=== PATIENT | female | born 1945 | race Caucasian/White ===

== ENCOUNTER 2022-06-27 18:26 | Inpatient (IN) | payer MEDICARE, OTHER ==
[~2022-06-27] VITALS: Ht 165.1 cm; Wt 72.1 kg
--- NOTE | 2022-06-27 18:56 | NUR ---
TO ER BED 1. [id number] FROM SNF [facility] THAN USUAL. BASELINE AAOX2. PT AFEBRILE. ATTACHED TO MONITOR. AWAITING MD LOPES.
--- NOTE | 2022-06-27 19:15 | NUR ---
Pt is noted in bed responsive but confused as report is received from the off going nurse that , Pt was brought in from SNF with AMS as baseline used to bed AOX2. Pt care continue as she will received IVF and LAB to do as ordered
[2022-06-27] MEDS ORDERED: IV NS 0.9% 500 ML BAG IV ONE (19:30)
--- NOTE | 2022-06-27 20:22 | NUR ---
COVID SWAB SENT TO LAB
[2022-06-27 20:56] LABS: BASOPHILS % (AUTO) 0.5 % (0.0-2.0); EOSINOPHILS % (AUTO) 4.1 % (0.0-6.0); HEMATOCRIT 40 % (33-45); HEMOGLOBIN 12.7 g/dL (11.5-14.8); LYMPHOCYTES # (AUTO) 1.2 K/uL (0.8-4.8); MEAN CORPUSCULAR HGB CONC 32 g/dl (31.0-36.0); MEAN CORPUSCULAR VOLUME 86 fL (82-100); MONOCYTES # (AUTO) 0.4 K/uL (0.1-1.30); MONOCYTES % (AUTO) 8.6 % (2.0-12.0); NEUTROPHILS # (AUTO) 3.2 K/uL (1.8-8.9); NEUTROPHILS % (AUTO) 63.8 % (43.0-81.0); PLATELET COUNT (AUTO) 152 K/uL (150-450); RED BLOOD CELL COUNT(AUTO) 4.65 MIL/uL (4.0-5.2)
[2022-06-27 21:08] LABS: CALCIUM, SERUM 9.1 mg/dL (8.5-10.1)
[2022-06-27 21:12] LABS: ALBUMIN 3.1 g/dL (3.4-5.0); BILIRUBIN,DIRECT 0.1 mg/dL (0.0-0.2); BILIRUBIN,TOTAL 0.4 mg/dL (0.2-1.0); TOTAL PROTEIN, SERUM 6.8 g/dL (6.4-8.2)
--- NOTE | 2022-06-27 21:16 | NUR ---
URINE COLLECTED AND SENT TO LAB
--- NOTE | 2022-06-27 21:51 | NUR ---
EPIC PANEL PAGED
[2022-06-27 21:59] LABS: BILIRUBIN,URINE NEGATIVE (NEGATIVE); COLOR,URINE YELLOW (YELLOW); LEUKOCYTE ESTERASE ,URINE 1+ (NEGATIVE); NITRITE, URINE POSITIVE (NEGATIVE); PROTEIN,URINE NEGATIVE (NEGATIVE); UGLUCOSE NEGATIVE (NEGATIVE); UROBILINOGEN,URINE 0.2 EU/dL (0.2)
[2022-06-27 22:05] LABS: BACTERIA,URINE 3+ /HPF (None Seen); RBC,URINE 0-2 /HPF (0-2)
--- NOTE | 2022-06-27 22:35 | NUR ---
RT CALLED FOR BREATHING TX
--- NOTE | 2022-06-27 22:36 | NUR ---
Pt care continue as she remain confused . Try giving report to the Floor RN as pt is going to Room 112-1 but RN is busy at this hour.
--- NOTE | 2022-06-27 22:40 | NUR ---
CASINO MANAGER AT PT'S BEDSIDE
[2022-06-27] MEDS ORDERED: CEFTRIAXONE 1GM BAG (ER ONLY) 1 GM/50 ML PIGGYBACK IV ONE (23:00)
[2022-06-27] MEDS ORDERED: LACT10SO3 PO (23:17)
[2022-06-27] MEDS ORDERED: LEVO75TA PO (23:17)
[2022-06-27] MEDS ORDERED: METO-357 PO (23:17)
[2022-06-27] MEDS ORDERED: [UNRECOGNIZED DRUG - CODE] PO (23:17)
[2022-06-27] MEDS ORDERED: FENO160T PO (23:17)
[2022-06-27] MEDS ORDERED: DIVA-78 PO (23:17)
[2022-06-27] MEDS ORDERED: CLON1TAB12 PO (23:17)
[2022-06-27] MEDS ORDERED: AMLO-212 PO (23:17)
[2022-06-27] MEDS ORDERED: ATOR20TA PO (23:17)
[2022-06-27] MEDS ORDERED: CALC1POW43 PO (23:17)
[2022-06-27] MEDS ORDERED: BENZ1TAB7 PO (23:17)
[2022-06-27] MEDS ORDERED: CHOL200013 PO (23:17)
[2022-06-27] MEDS ORDERED: MULT-754 PO (23:17)
--- NOTE | 2022-06-27 23:22 | NUR ---
REPORT GIVEN TO JAYCEE ON FIRST FLOOR
[2022-06-27] MEDS ORDERED: CEFTRIAXONE 1GM BAG (ER ONLY) 50 ML IV ONE (23:40)
--- NOTE | 2022-06-27 23:43 | NUR ---
PT TRANSFERRING TO [facility] VIA ACLS PROTOCOL VSS.
[2022-06-28] VITALS: BP 165/84
--- NOTE | 2022-06-28 | NUR ---
NARROW FABRICS WEAVER NOTE RECEIVED PT FROM ER VIA [facility] WITH THE DX OF AMS AND UTI. PT IS AWAKE BUT CONFUSED. ON NC @ 3LPM, TOLERATING WELL, SATING @ 98%. NO S/SX OF ACUTE RESPI DISTRESS NOTED AT THIS TIME. NO SOB. BREATHING IS EVEN AND UNLABORED. HEALTH INFORMATICS INSTRUCTOR READS SR. IV ACCES NOTED ON LAC, #20g, PATENT, INTACT AND FLUSHES WELL. SKIN IS INTACT UPON ASSESSMENT. ALL SAFETY MEASURES IN PLACE: BED LOCKED IN LOW POSITION. BED ALARM ON. SR UP X 2, CALL LIGHT WITHIN REACH. WILL CONTINUE TO MONITOR PT.
[2022-06-28] MEDS: IV D5W 1,000 ML IV PRN ×2 (00:27→15:02)
[2022-06-28] MEDS ORDERED: MAGNESIUM HYDROXIDE 30 ML UDC PO PRN (00:30)
[2022-06-28] MEDS ORDERED: Z GUARD REMEDY 4 OZ OINT TP PRN (00:30)
[2022-06-28] MEDS ORDERED: ONDANSETRON HCL/PF 4 MG/2 ML VIAL IVP PRN (00:30)
[2022-06-28] MEDS ORDERED: hydrALAZINE HCL IV 20 MG VIAL IV PRN (00:30)
[2022-06-28] MEDS: ENOXAPARIN SODIUM 40 MG/0.4 ML DISP.SYRIN SQ SCH ×2 (00:35→21:44)
[2022-06-28 04:00] VITALS: BP 153/81
[2022-06-28 05:48] LABS: BASOPHILS % (AUTO) 0.5 % (0.0-2.0); EOSINOPHILS % (AUTO) 3.5 % (0.0-6.0); HEMATOCRIT 42 % (33-45); HEMOGLOBIN 13.4 g/dL (11.5-14.8); LYMPHOCYTES # (AUTO) 1.8 K/uL (0.8-4.8); LYMPHOCYTES % (AUTO) 29.6 % (20.0-44.0); MEAN CORPUSCULAR HGB CONC 32 g/dl (31.0-36.0); MEAN CORPUSCULAR VOLUME 85 fL (82-100); MONOCYTES # (AUTO) 0.5 K/uL (0.1-1.30); MONOCYTES % (AUTO) 8.8 % (2.0-12.0); NEUTROPHILS # (AUTO) 3.4 K/uL (1.8-8.9); NEUTROPHILS % (AUTO) 57.6 % (43.0-81.0); PLATELET COUNT (AUTO) 184 K/uL (150-450); RED BLOOD CELL COUNT(AUTO) 4.91 MIL/uL (4.0-5.2)
[2022-06-28 06:03] LABS: CALCIUM, SERUM 8.7 mg/dL (8.5-10.1); CREATININE 0.8 mg/dL (0.6-1.3); MAGNESIUM 1.8 mg/dL (1.8-2.4); POTASSIUM 3.6 mmol/L (3.5-5.1)
--- NOTE | 2022-06-28 06:16 | NUR ---
RN CLOSING NOTE NO SIGNIFICANT CHANGE T/O THE NIGHT. PT REMAINED STABLE WITH NO S/SX OF ACUTE DISTRESS NOTED. DUE MEDS GIVEN. NEEDS MET. WILL ENDORSE TO AM SHIFT NURSE FOR MICHELLE.
[2022-06-28 06:19] LABS: THYROID STIMULATING HORMONE 1.254 uIU/mL (0.358-3.74)
--- NOTE | 2022-06-28 07:10 | NUR ---
ODD JOB LABORER NOTES Received pt asleep in bed. non verbal and unable to follow command. No signs of pain or discomfort at this time. Pt is on 3L NC and tolerating it well. IV access on LAC 20G running IVF D5W @75cc/Hr. HOB elevated to 30-45 degrees. Siderails up at all times x2. Call light within reach. Will continue to monitor.
[2022-06-28] MEDS: PANTOPRAZOLE 40 MG TABLET.DR PO SCH (07:30)
[2022-06-28 08:00] VITALS: BP 149/88
--- NOTE | 2022-06-28 08:30 | NUR ---
RAIL WALKER NOTES Pantoprazole held d/t pt having hx of dysphagia. Pending ST eval.
[2022-06-28 12:00] VITALS: BP 157/98
[2022-06-28] MEDS ORDERED: FLUP5ORA PO (14:34)
[2022-06-28] MEDS ORDERED: MULT-447 PO (14:34)
[2022-06-28] MEDS ORDERED: FLUP25VI4 IM (14:34)
[2022-06-28] MEDS ORDERED: MAGN400O6 PO (14:34)
[2022-06-28] MEDS ORDERED: ACET-868 PO (14:34)
[2022-06-28] MEDS ORDERED: CALC1TAB30 PO (14:34)
[2022-06-28] MEDS ORDERED: BISA10SU11 RC (14:34)
[2022-06-28] MEDS ORDERED: ASCO500T10 PO (14:34)
[2022-06-28] MEDS ORDERED: NA P133E RC (14:34)
[2022-06-28 16:00] VITALS: BP 110/70
--- NOTE | 2022-06-28 18:29 | NUR ---
HEAD INSPECTOR CLOSING NOTES All due meds and tx given as ordered. Pt tolerated everything well. All needs attended to. Pt is still on 3L NC and tolerating it well. IV access on LAC 20G. Call light within reach. Will endorse to oncoming nurse.
--- NOTE | 2022-06-28 19:35 | NUR ---
RN OPENING NOTES RECEIVED PT IN BED, SLEEPING BUT EASILY AROUSABLE. ALERT/ORIENTED X 1 WITH CONFUSION AND RESPONSIVE TO PAIFUL STIMULI. ON O2 AT 3L/MIN VIA N/C AND PT TOLERATED WELL. IV ACCESS ON LAC#20G INTACT AND PATENT. NO S/S OF INFILTRATIONS. RUNNING D5W AT 75CC/HR. NO FACIAL GRIMACING NOTED. NO ACUTE DISTRESS. ALL SAFETY MEASURES IN PLACE. BED IN LOWEST POSITION AND LOCKED. SIDE RAILS UP X3, PLACE CALL LIGHT WITH IN REACH. WILL CONTINUE TO MONITOR
[2022-06-28 20:00] VITALS: BP 103/51
--- NOTE | 2022-06-28 21:29 | NUR ---
NOTED PATIENT WITH HR IN 40S MOSTLY 40S TO MID 40S SUSTAINED, WITH 2 EPISODES DROPPING TO 37-38 NOT SUSTAINED, SEND THE STRIP AND INFORMED DR RACHEL CUSTOMIZER CAFETERIA AIDE, AND PER HIM HE WILL SEE PATIENT IN THE MORNING, ASKED DR RACHEL AGAIN AND THERE'S ANY NEW ORDER TO FOLLOW FOR NOW AND HE SAID NO NEW ORDERS AT THIS TIME, BP AT THIS TIME 133/68, 100%, 18, AFEBRILE, WILL CONTINUE TO MONITOR CLOSELY.
[2022-06-28] MEDS: CEFTRIAXONE 1 G in IV D5W 50 ML IV SCH (21:41)
[2022-06-29] VITALS (7 sets, daily range): BP systolic 113–161; BP diastolic 53–111
[2022-06-29] MEDS: IV D5W 1,000 ML IV PRN ×2 (05:58→19:31)
--- NOTE | 2022-06-29 06:31 | NUR ---
RN CLOSING NOTES PT IN BED, SLEEPING BUT EASILY AROUSABLE. ALERT/ORIENTED X 1 WITH CONFUSION AND RESPONSIVE TO PAINFUL STIMULI. ON O2 AT 3L/MIN VIA N/C AND PT TOLERATED WELL. O2 SAT 100%. IV ACCESS ON LAC#20G AND LT HAND#20G INTACT AND PATENT. NO S/S OF INFILTRATIONS. RUNNING D5W AT 75CC/HR. NO FACIAL GRIMACING NOTED. NO ACUTE DISTRESS.STILL NOTED EPISODES OF SCREAMING AND YELLING. HR SUSTAINING NOW ON 50'S. ALL DUE MEDS GIVEN ORDERED. ALL SAFETY MEASURES IN PLACE. BED IN LOWEST POSITION AND LOCKED. SIDE RAILS UP X3, PLACE CALL LIGHT WITH IN REACH. WILL ENDORSE TO MORNING SHIFT NURSE.
--- NOTE | 2022-06-29 07:47 | NUR ---
RN OPENING NOTES PT IN BED, SLEEPING BUT EASILY AROUSABLE. ALERT/ORIENTED X 1 WITH CONFUSION AND RESPONSIVE TO PAINFUL STIMULI. ON O2 AT 3L/MIN VIA N/C WITH NO SOB OR SIGNS OF RESPIRATORY DISTRESS. IV ACCESS ON LAC#20G AND LT HAND#20G INTACT AND PATENT RUNNING D5W AT 75CC/HR. NO ACUTE DISTRESS. ALL SAFETY MEASURES IN PLACE. BED IN LOWEST POSITION AND LOCKED. SIDE RAILS UP X3, PLACE CALL LIGHT WITH IN REACH. WILL CONTINUE TO MONITOR.
--- NOTE | 2022-06-29 08:07 | NUR ---
RN NOTES PER DR. BALLARD, PT PASSED SWALLOW EVAL. CAN ADVANCE DIET ORDERED.
[2022-06-29] MEDS: PANTOPRAZOLE 40 MG TABLET.DR PO SCH (08:40)
--- NOTE | 2022-06-29 09:00 | NUR ---
RN NOTES DISCONTINUED LAC IV DUE TO REDNESS AND SWELLING AROUND IV SITE WELL PAIN ON SALINE FLUSH.
[2022-06-29] MEDS ORDERED: NITROGLYCERIN 30 GM TUBE TP SCH (10:00)
[2022-06-29] MEDS: ACETAMINOPHEN 325 MG TABLET PO PRN ×2 (11:47→12:22)
--- NOTE | 2022-06-29 12:22 | NUR ---
RN NOTES FOR TYLENOL PT REFUSED
--- NOTE | 2022-06-29 19:05 | NUR ---
RN OPENING NOTES RECEIVED PATIENT IN BED, AWAKE, AAO X 1-2, CONFUSED. RESPONSIVE TO PAINFUL STIMULI. O2 VIA NC AT 4L, NO SOB/DISTRESS NOTED. ON TELE MONITOR SHOWING SINUS RHYTHM, HR 68. IV ACCESS ON LEFT HAND #20G, INTACT AND PATENT RUNNING D5W AT 75 ML/HR. SAFETY MEASURES IN PLACE: BED LOCKED AND IN LOWEST POSITION, SIDE RAILS UP X3, CALL LIGHT WITHIN REACH.
--- NOTE | 2022-06-29 19:07 | NUR ---
ELECTRON GUN ASSEMBLER CLOSING NOTES PT IN BED SLEEPING BUT EASILY AROUSABLE. ALERT/ORIENTED X 1-2 WITH CONFUSION. RESPONSIVE TO PAINFUL STIMULI. ON O2 AT 3-4 L/MIN VIA N/C WITH NO SOB OR SIGNS OF RESPIRATORY DISTRESS. IV ACCESS ON LT HAND#20G INTACT AND PATENT RUNNING D5W AT 75CC/HR. NO ACUTE DISTRESS. ALL SAFETY MEASURES IN PLACE WITH BED IN LOWEST POSITION AND LOCKED. SIDE RAILS UP X3, PLACE CALL LIGHT WITH IN REACH. WILL ENDORSE TO ONCOMING SHIFT FOR MICHELLE.
[2022-06-29] MEDS: NITROGLYCERIN 30 GM TUBE TP SCH (21:25)
[2022-06-29] MEDS: CEFTRIAXONE 1 G in IV D5W 50 ML IV SCH (21:26)
[2022-06-29] MEDS: ENOXAPARIN SODIUM 40 MG/0.4 ML DISP.SYRIN SQ SCH ×2 (21:29→21:49)
--- NOTE | 2022-06-29 21:50 | NUR ---
RN NOTE PATIENT REFUSED LOVENOX
[2022-06-30] VITALS: BP 141/57
[2022-06-30 04:00] VITALS: BP 146/84
--- NOTE | 2022-06-30 06:48 | NUR ---
RN CLOSING NOTES PATIENT IN BED, AWAKE, AAO X 1-2, CONFUSED. O2 VIA NC AT 3 L, NO SOB/DISTRESS NOTED. ON TELE MONITOR SHOWING SINUS RHYTHM, HR 51. IV ACCESS ON LEFT HAND #20G, INTACT AND PATENT RUNNING D5W AT 75 ML/HR. ALL DUE MEDS WERE GIVEN AND NEEDS ATTENDED. SAFETY MEASURES MAINTAINED: BED LOCKED AND IN LOWEST POSITION, SIDE RAILS UP X3, CALL LIGHT WITHIN REACH. WILL ENDORSE TO ONCOMING NURSE FOR MICHELLE.
--- NOTE | 2022-06-30 07:15 | NUR ---
RN OPENING NOTES RECEIVED PATIENT IN BED, AWAKE, AO X 1-2, CONFUSED. RESPONSIVE TO PAINFUL STIMULI. O2 VIA NC AT 4L, NO SOB/DISTRESS NOTED. ON TELE MONITOR SHOWING SINUS RHYTHM, HR 68. IV ACCESS ON LEFT HAND #20G, INTACT AND PATENT RUNNING D5W AT 75 ML/HR. SAFETY MEASURES IN PLACE: BED LOCKED AND IN LOWEST POSITION, SIDE RAILS UP X3, CALL LIGHT WITHIN REACH.will continue to fallow poc
[2022-06-30] MEDS: PANTOPRAZOLE 40 MG TABLET.DR PO SCH (07:53)
[2022-06-30 08:00] VITALS: BP 170/86
[2022-06-30 08:13] LABS: BASOPHILS % (AUTO) 0.4 % (0.0-2.0); EOSINOPHILS % (AUTO) 6.9 % (0.0-6.0); HEMATOCRIT 39 % (33-45); HEMOGLOBIN 12.5 g/dL (11.5-14.8); LYMPHOCYTES # (AUTO) 1.1 K/uL (0.8-4.8); LYMPHOCYTES % (AUTO) 19.8 % (20.0-44.0); MEAN CORPUSCULAR HGB CONC 32 g/dl (31.0-36.0); MEAN CORPUSCULAR VOLUME 84 fL (82-100); MONOCYTES # (AUTO) 0.5 K/uL (0.1-1.30); MONOCYTES % (AUTO) 10.2 % (2.0-12.0); NEUTROPHILS # (AUTO) 3.3 K/uL (1.8-8.9); NEUTROPHILS % (AUTO) 62.7 % (43.0-81.0); PLATELET COUNT (AUTO) 106 K/uL (150-450); WHITE BLOOD COUNT (AUTO) 5.3 K/uL (4.3-11.0)
[2022-06-30 08:20] LABS: CALCIUM, SERUM 8.9 mg/dL (8.5-10.1); CREATININE 0.7 mg/dL (0.6-1.3); POTASSIUM 4.1 mmol/L (3.5-5.1)
[2022-06-30] MEDS: NITROGLYCERIN 30 GM TUBE TP SCH ×2 (08:38→20:23)
[2022-06-30] MEDS ORDERED: CLONIDINE HCL 0.1MG/24H PTWK 1 EA PATCH TD SCH (10:00)
[2022-06-30 12:00] VITALS: BP 157/78
[2022-06-30] MEDS: ACETAMINOPHEN 325 MG TABLET PO PRN (12:35)
[2022-06-30 16:00] VITALS: BP 152/76
[2022-06-30 16:42] LABS: BAND % (MANUAL) 1 % (0.0-5.0); EOSINOPHILS % (MANUAL) 4 % (0-4); LYMPHOCYTES % (MANUAL) 24 % (16-48); MONOCYTES % (MANUAL) 5 % (0-11.0); NEUTROPHILS % (MANUAL) 66 (42-76)
[2022-06-30 20:00] VITALS: BP 163/90
[2022-06-30] MEDS: CEFTRIAXONE 1 G in IV D5W 50 ML IV SCH (21:11)
[2022-06-30] MEDS: ENOXAPARIN SODIUM 40 MG/0.4 ML DISP.SYRIN SQ SCH (21:14)
[2022-07-01] VITALS (8 sets, daily range): BP systolic 110–160; BP diastolic 52–83
[2022-07-01 07:15] LABS: BASOPHILS % (AUTO) 0.4 % (0.0-2.0); HEMATOCRIT 38 % (33-45); HEMOGLOBIN 12.4 g/dL (11.5-14.8); LYMPHOCYTES # (AUTO) 1.1 K/uL (0.8-4.8); LYMPHOCYTES % (AUTO) 19.8 % (20.0-44.0); MEAN CORPUSCULAR HGB CONC 33 g/dl (31.0-36.0); MEAN CORPUSCULAR VOLUME 83 fL (82-100); MONOCYTES # (AUTO) 0.5 K/uL (0.1-1.30); MONOCYTES % (AUTO) 9.2 % (2.0-12.0); NEUTROPHILS # (AUTO) 3.6 K/uL (1.8-8.9); NEUTROPHILS % (AUTO) 66.6 % (43.0-81.0); PLATELET COUNT (AUTO) 209 K/uL (150-450); RED BLOOD CELL COUNT(AUTO) 4.52 MIL/uL (4.0-5.2); WHITE BLOOD COUNT (AUTO) 5.4 K/uL (4.3-11.0)
[2022-07-01 07:18] LABS: CALCIUM, SERUM 9.2 mg/dL (8.5-10.1); CREATININE 0.8 mg/dL (0.6-1.3); POTASSIUM 3.7 mmol/L (3.5-5.1)
--- NOTE | 2022-07-01 07:22 | NUR ---
RN OPENING NOTES RECEIVED PATIENT IN BED, AWAKE, CONFUSED. RESPONSIVE TO PAINFUL STIMULI. O2 VIA NC AT 4L, NO SOB/DISTRESS NOTED. ON TELE MONITOR SHOWING SINUS RHYTHM, HR 72. IV ACCESS ON LEFT HAND #20G, INTACT AND PATENT . SAFETY MEASURES IN PLACE: BED LOCKED AND IN LOWEST POSITION, SIDE RAILS UP X3, CALL LIGHT WITHIN REACH.WILL CONTINUE TO MONITOR
[2022-07-01] MEDS: PANTOPRAZOLE 40 MG TABLET.DR PO SCH (07:38)
[2022-07-01] MEDS: NITROGLYCERIN 30 GM TUBE TP SCH ×2 (08:24→20:44)
[2022-07-01] MEDS: ACETAMINOPHEN 325 MG TABLET PO PRN ×2 (09:02→17:01)
[2022-07-01] MEDS ORDERED: CLONIDINE HCL 0.1MG/24H PTWK 1 EA PATCH TD SCH (11:00)
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
[2022-07-01] MEDS ORDERED: LEVO500T90 PO (11:09)
[2022-07-01] MEDS ORDERED: CLON1PAT TD (11:09)
--- NOTE | 2022-07-01 11:15 | NUR ---
awaits new snf per cm.
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
--- NOTE | 2022-07-01 16:10 | NUR ---
RN NOTE EMT CAME TO PICK THE PATIENT UP TO TRANSFER TO [facility] , BP WAS 175/75 , HT 97 .DR BALLARD WAS NOTIFIED CALLED TO THE [facility], THE REFUSED TO GET THE PATIENT AT THIS TIME , DR SEXTON NOTIFIED , ORDER RECEIVED FOR CLONIDINE 0.1 MG 1 TAB ORALLY AT 2029 . CREDIT SUPPORT COUNSELOR TIME RESCHEDULED TO 9 PM , FACILITY NOTIFIED.
--- NOTE | 2022-07-01 16:44 | NUR ---
PT. C/O CHEST PAIN AND SBP 175 DESPITE PRN HYDRALAZINE GIVEN,DR. BALLARD NOTIFIED ,WILL DC ONCE BP STABLE AND NO CHEST PAIN,CM MADE3 AWARE.ON WILL CALL AMBULANCE.
--- NOTE | 2022-07-01 17:47 | NUR ---
rescheduled with [facility] [phone] picker for [address]. cleared by dr. torres for discharge.
[2022-07-01] MEDS ORDERED: clonazePAM 0.5 MG TABLET PO ONE (18:00)
--- NOTE | 2022-07-01 18:46 | NUR ---
RN NOTE PATIENT BECAME VERY AGITATED . DAUGHTER AT THE BED SIDE STATED THAT SHE WANTS TO CHANGE NURSE BECAUSE , STATING THAT I DO NOT CARE ABOUT HER MOTHER .I REASUURED THE DAUGHTER LEFTY THAT I AM DOING EVERYTHING BY MD CONNER AND SHE AGREED WITH ME .WILL CONTINUE TO FALLOW POC .
--- NOTE | 2022-07-01 18:49 | NUR ---
RN CLOSING NOTES PATIENT IN BED, AWAKE, AAO X 1-2, CONFUSED. O2 VIA NC AT 3 L, NO SOB/DISTRESS NOTED. ON TELE MONITOR SHOWING SINUS RHYTHM, HR 78. IV ACCESS ON LEFT HAND #20G, INTACT AND PATENT RUNNING D5W AT 75 ML/HR. ALL DUE MEDS WERE GIVEN AND NEEDS ATTENDED. SAFETY MEASURES MAINTAINED: BED LOCKED AND IN LOWEST POSITION, SIDE RAILS UP X3, CALL LIGHT WITHIN REACH. WILL ENDORSE TO PM NURSE FOR MICHELLE.
[2022-07-01] MEDS ORDERED: CLONIDINE HCL 0.1 MG TABLET PO ONE (20:30)
--- NOTE | 2022-07-01 21:40 | NUR ---
COMPUTATIONAL GENETICISTTURN DOWN ATTENDANT NOTES PATIENT DISCHARGE IN STABLE CONDITION. A/O X 1-2. V/S TAKEN, STABLE AND RECORDED. 121/52 BP, 81 HR, 20 RR, 98% O2 SAT AND 97.8 TEMP. NO IV ACCESS. NAME BAND REMOVED. EXTERNAL TRANSITION NURSE REMOVED AND RETURNED TO THE TELE DESK. SKIN ASSESSMENT DONE. ALL BELONGINGS CHECKED AND BELONGING LIST SIGNED. PATIENT LEFT VIA GURNEY. CHARGE NURSE AWARE OF DISCHARGE.
[2022-07-07] MEDS ORDERED: CLONIDINE HCL 0.1MG/24H PTWK 1 EA PATCH TD SCH (10:00)
== END 2022-07-01 22:31 | DRG 689 ==
LOC: ER 18:30 → TELE1 22:28
PROVIDERS: ADMIT Nurse Practitioner Family; ATTEND Internal Medicine
DX: N39.0 Urinary tract infection, site not specified (principal); G93.41 Metabolic encephalopathy; E44.1 Mild protein-calorie malnutrition; E87.1 Hypo-osmolality and hyponatremia; J90 Pleural effusion, not elsewhere classified; R00.1 Bradycardia, unspecified; Z20.822 Contact with and (suspected) exposure to COVID-19; J44.9 Chronic obstructive pulmonary disease, unspecified; F25.9 Schizoaffective disorder, unspecified; M19.90 Unspecified osteoarthritis, unspecified site; Z88.0 Allergy status to penicillin; B96.89 Other specified bacterial agents as the cause of diseases classified elsewhere; E78.5 Hyperlipidemia, unspecified; E88.09 Other disorders of plasma-protein metabolism, not elsewhere classified; J45.909 Unspecified asthma, uncomplicated; E03.9 Hypothyroidism, unspecified; F41.9 Anxiety disorder, unspecified; I10 Essential (primary) hypertension; G62.9 Polyneuropathy, unspecified; Z87.19 Personal history of other diseases of the digestive system; R79.89 Other specified abnormal findings of blood chemistry; R26.89 Other abnormalities of gait and mobility; B96.20 Unspecified Escherichia coli [E. coli] as the cause of diseases classified elsewhere; H26.9 Unspecified cataract
CPT/HCPCS: 36415; 70450-TC; 71045-TC; 80048-TC; 80076-TC; 81001; 83735-TC; 84443-TC; 85025-TC; 85730-TC; 87040-TC; 87086-TC; 92526; 92611-TC; 93307-TC; A4223; C9803; G0378; J0360; J0696; J1650; J7050; J7060; J7070

== ENCOUNTER 2023-07-08 06:39 | Emergency (ER) | payer MEDICARE, OTHER ==
[~2023-07-08] VITALS: Ht 167.6 cm; Wt 72.1 kg
[~2023-07-08 06:39] MED LIST: ACET-868 PO; AMLO-212 PO; ASCO500T10 PO; ATOR20TA PO; BENZ1TAB7 PO; BISA10SU11 RC; CALC1TAB30 PO; CHOL200013 PO; CLON1PAT TD; CLON1TAB12 PO; DIVA-78 PO; FENO160T PO; FLUP25VI4 IM; FLUP5ORA PO; LACT10SO3 PO; LEVO500T90 PO; LEVO75TA PO; MAGN400O6 PO; MULT-447 PO; NA P133E RC
[2023-07-08] MEDS ORDERED: diphenhydrAMINE HCL 50 MG/ML VIAL ONE (07:51)
[2023-07-08] MEDS ORDERED: LORAZEPAM INJ 2 MG/ML VIAL ONE (07:51)
[2023-07-08] MEDS: diphenhydrAMINE HCL 50 MG/ML VIAL IM ONE (07:53)
[2023-07-08] MEDS: LORAZEPAM INJ 2 MG/ML VIAL IV ONE (07:53)
[2023-07-08 08:10] LABS: BASOPHILS % (AUTO) 0.2 % (0.0-2.0); EOSINOPHILS % (AUTO) 0.5 % (0.0-6.0); HEMATOCRIT 39 % (33-45); HEMOGLOBIN 12.8 g/dL (11.5-14.8); LYMPHOCYTES % (AUTO) 9.4 % (20.0-44.0); MEAN CORPUSCULAR HEMOGLOBIN 29 PG (26.0-33.0); MEAN CORPUSCULAR HGB CONC 33 g/dl (31.0-36.0); MEAN CORPUSCULAR VOLUME 87 fL (82-100); MONOCYTES # (AUTO) 0.6 K/uL (0.1-1.30); MONOCYTES % (AUTO) 5.6 % (2.0-12.0); NEUTROPHILS # (AUTO) 9.2 K/uL (1.8-8.9); NEUTROPHILS % (AUTO) 84.3 % (43.0-81.0); PLATELET COUNT (AUTO) 287 K/uL (150-450); RED BLOOD CELL COUNT(AUTO) 4.47 MIL/uL (4.0-5.2); RED CELL DISTRIBUTION WIDTH 14.6 % (11.5-15.0); WHITE BLOOD COUNT (AUTO) 10.9 K/uL (4.3-11.0)
[2023-07-08 08:13] LABS: APPEARANCE,URINE SLIGHTLY CLOUDY (CLEAR); BILIRUBIN,URINE 1+ (NEGATIVE); BLOOD, URINE NEGATIVE Ery/uL (NEGATIVE); COLOR,URINE DARK YELLOW (YELLOW); KETONES,URINE TRACE mg/dL (NEGATIVE); LEUKOCYTE ESTERASE ,URINE 1+ (NEGATIVE); NITRITE, URINE POSITIVE (NEGATIVE); PH,URINE 5.5 (5.0-8.0); PROTEIN,URINE 1+ mg/dl (NEGATIVE); UGLUCOSE NEGATIVE (NEGATIVE); UROBILINOGEN,URINE 0.2 EU/dL (0.2)
[2023-07-08 08:14] LABS: ADD URINE CULTURE YES; BACTERIA,URINE Moderate /HPF (None Seen); SQUAMOUS EPITHELIAL CELL,UR Rare /HPF (None Seen); WBC,URINE 21-50 /HPF (0-3)
[2023-07-08 08:20] LABS: AMPHETAMINE, URINE NEGATIVE (NEGATIVE); BARBITURATE, URINE NEGATIVE (NEGATIVE); BENZODIAZEPINE, URINE NEGATIVE (NEGATIVE); CANNABINOID, URINE NEGATIVE (NEGATIVE); COCCAINE, URINE NEGATIVE (NEGATIVE); OPIATE, URINE NEGATIVE (NEGATIVE); PHENCYCLIDINE SCREEN,URINE NEGATIVE (NEGATIVE)
[2023-07-08 08:22] LABS: CALCIUM, SERUM 9.9 mg/dL (8.5-10.1); CARBON DIOXIDE 27 mmol/L (21-32); CHLORIDE 107 mmol/L (98-107); GLUCOSE 113 mg/dL (74-106); POTASSIUM 3.9 mmol/L (3.5-5.1); SODIUM SERUM 145 mmol/L (136-145); UREA NITROGEN, BLOOD 15 mg/dL (7-18)
[2023-07-08 08:31] LABS: ALANINE AMINOTRANSFERASE 20 U/L (12-78); ALBUMIN 3.3 g/dL (3.4-5.0); ALKALINE PHOSPHATASE 72 U/L (46-116); ASPARTATE AMINOTRANSFERASE 17 U/L (15-37); BILIRUBIN,DIRECT 0.3 mg/dL (0.0-0.2); BILIRUBIN,TOTAL 1.3 mg/dL (0.2-1.0); TOTAL PROTEIN, SERUM 8.3 g/dL (6.4-8.2)
[2023-07-08 08:43] LABS: ACETAMINOPHEN <10 ug/ml (10-30); SALICYLATE < 2.8 mg/dL (2.8-20.0)
[2023-07-08 08:44] LABS: ALCOHOL, BLOOD < 0 mg/dL (0-10)
[2023-07-08] MEDS ORDERED: CIPROFLOXACIN IV RTU 200 ML IV ONE (08:58)
[2023-07-08] MEDS ORDERED: CIPROFLOXACIN IV RTU 400 MG in PREMIX 1 EA IV SCH (09:00)
[2023-07-08] MEDS ORDERED: CIPROFLOXACIN HCL 500 MG TABLET ONE (09:11)
[2023-07-08] MEDS: CIPROFLOXACIN HCL 500 MG TABLET PO ONE (09:12)
[2023-07-08] MEDS ORDERED: CLON0.1T PO (10:16)
[2023-07-08] MEDS ORDERED: CLON0.5T PO (10:16)
[2023-07-08] MEDS ORDERED: DIVA500T2 PO (10:16)
[2023-07-08] MEDS ORDERED: QUET25TA PO ×2 (10:32)
[2023-07-08] MEDS ORDERED: CLON1PAT TD (10:32)
[2023-07-08] MEDS ORDERED: AMLO5TAB4 PO (10:32)
[2023-07-08 16:36] VITALS: BP 118/66; TEMP 98; O2SAT 98
== END 2023-07-08 17:55 ==
LOC: ER 06:52
DX: N39.0 Urinary tract infection, site not specified (principal); R46.1 Bizarre personal appearance; I10 Essential (primary) hypertension; J44.9 Chronic obstructive pulmonary disease, unspecified; Z79.899 Other long term (current) drug therapy; Z20.822 Contact with and (suspected) exposure to COVID-19; Z88.0 Allergy status to penicillin
CPT/HCPCS: 99285; 96372; 96374; 85025; 80048; 80076; 81001; 36415; 87426; 80143; 80320; 80307; J2060; J1200; J0744; G0480

== ENCOUNTER 2024-11-20 20:37 | Inpatient (IN) | payer MEDICARE, OTHER ==
[~2024-11-20] VITALS: Ht 154.9 cm; Wt 70.3 kg
[~2024-11-20 20:37] MED LIST changes: -ACET-868 PO; -AMLO-212 PO; +AMLO5TAB4 PO; -ASCO500T10 PO; -BISA10SU11 RC; -CALC1TAB30 PO; -CHOL200013 PO; +CLON0.5T PO; -CLON1TAB12 PO; -DIVA-78 PO; +DIVA500T2 PO; -FENO160T PO; -FLUP25VI4 IM; -FLUP5ORA PO; -LACT10SO3 PO; -LEVO500T90 PO; -LEVO75TA PO; -MAGN400O6 PO; -MULT-447 PO; -NA P133E RC; +QUET25TA PO
[2024-11-20] MEDS ORDERED: LORAZEPAM INJ 2 MG/ML VIAL ONE (23:43)
[2024-11-20] MEDS: LORAZEPAM INJ 2 MG/ML VIAL IV ONE (23:57)
[2024-11-21 00:02] LABS: PLATELET COUNT (AUTO) 480 K/uL (150-450); RED BLOOD CELL COUNT(AUTO) 4.10 MIL/uL (4.0-5.2); RED CELL DISTRIBUTION WIDTH 15.5 % (11.5-15.0); WHITE BLOOD COUNT (AUTO) 10.6 K/uL (4.3-11.0)
[2024-11-21] MEDS: IV NS 0.9% 500 ML BAG IV ONE (00:15)
[2024-11-21] MEDS ORDERED: ACETAMINOPHEN ES 500 MG TABLET ONE (00:16)
[2024-11-21 00:18] LABS: CALCIUM, SERUM 8.7 mg/dL (8.5-10.1); CREATININE 0.7 mg/dL (0.6-1.3); SODIUM SERUM 137 mmol/L (136-145); UREA NITROGEN, BLOOD 9 mg/dL (7-18)
[2024-11-21 00:19] LABS: SERUM AMMONIA 13 umol/L (11-32)
[2024-11-21] MEDS: ACETAMINOPHEN ES 500 MG TABLET PO ONE (00:22)
[2024-11-21 00:25] LABS: ALCOHOL, BLOOD < 3 mg/dL (0-10); ASPARTATE AMINOTRANSFERASE 29 U/L (15-37); TOTAL PROTEIN, SERUM 7.0 g/dL (6.4-8.2)
[2024-11-21 00:32] LABS: APPEARANCE,URINE SLIGHTLY CLOUDY (CLEAR); BLOOD, URINE NEGATIVE Ery/uL (NEGATIVE); LEUKOCYTE ESTERASE ,URINE NEGATIVE (NEGATIVE); NITRITE, URINE NEGATIVE (NEGATIVE); UGLUCOSE NEGATIVE (NEGATIVE)
[2024-11-21 00:42] LABS: ADD URINE CULTURE NO; SQUAMOUS EPITHELIAL CELL,UR Moderate /HPF (None Seen)
[2024-11-21 00:46] LABS: AMPHETAMINE, URINE NEGATIVE (NEGATIVE); BARBITURATE, URINE NEGATIVE (NEGATIVE); BENZODIAZEPINE, URINE NEGATIVE (NEGATIVE); CANNABINOID, URINE NEGATIVE (NEGATIVE); COCCAINE, URINE NEGATIVE (NEGATIVE); OPIATE, URINE NEGATIVE (NEGATIVE)
[2024-11-21] MEDS ORDERED: LORAZEPAM INJ 2 MG/ML VIAL ONE (00:47)
[2024-11-21] MEDS: LORAZEPAM INJ 2 MG/ML VIAL IV ONE (00:50)
[2024-11-21 00:51] LABS: LACTIC ACID 2.3 mmol/L (0.4-2.0)
[2024-11-21 00:54] LABS: INR 1.03 (0.91-1.10)
[2024-11-21] MEDS ORDERED: ASPIRIN 300 MG/SUPP.RECT RC ONE (00:58)
[2024-11-21] MEDS: ASPIRIN 300 MG/SUPP.RECT RC ONE (01:05)
[2024-11-21] MEDS ORDERED: ACETAMINOPHEN 650 MG/20.3 ML UDC ONE (01:17)
[2024-11-21] MEDS ORDERED: ACETAMINOPHEN 650 MG/SUPP.RECT RC ONE (01:22)
[2024-11-21] MEDS: ACETAMINOPHEN 650 MG/SUPP.RECT RC ONE (01:31)
[2024-11-21] MEDS ORDERED: LORA-259 PO (01:33)
[2024-11-21] MEDS ORDERED: MIRT7.5T10 PO (01:33)
[2024-11-21] MEDS ORDERED: BUSP5TAB3 PO (01:33)
[2024-11-21] MEDS ORDERED: QUET50TA PO (01:33)
[2024-11-21] MEDS ORDERED: DONE5TAB34 PO (01:33)
[2024-11-21] MEDS ORDERED: OLANZAPINE 10 MG VIAL IM ONE (01:33)
[2024-11-21] MEDS ORDERED: DOXE3TAB4 PO (01:33)
[2024-11-21] MEDS: OLANZAPINE 10 MG VIAL IM ONE (01:39)
[2024-11-21] MEDS ORDERED: ONDANSETRON HCL/PF 4 MG/2 ML VIAL IVP PRN (02:00)
[2024-11-21] MEDS ORDERED: MAGNESIUM HYDROXIDE 30 ML UDC PO PRN (02:00)
[2024-11-21] MEDS ORDERED: MAG HYDROX/AL HYDROX/SIMETH 30 ML UDC PO PRN (02:00)
[2024-11-21] MEDS: IV NS 0.9% 1,000 ML IV PRN (02:47)
[2024-11-21] MEDS: HEPARIN SODIUM, PORCINE 5000 UNITS/1 ML VIAL SQ SCH (02:50)
[2024-11-21 03:45] VITALS: BP 104/50; TEMP 97.5; O2SAT 97
[2024-11-21 07:00] VITALS: BP 135/67; TEMP 97.9; O2SAT 99
[2024-11-21 07:22] LABS: CALCIUM, SERUM 7.8 mg/dL (8.5-10.1); CREATININE 0.7 mg/dL (0.6-1.3); SODIUM SERUM 139.0 mmol/L (136-145); UREA NITROGEN, BLOOD 9.0 mg/dL (7-18)
[2024-11-21 07:27] LABS: PHOSPHORUS 3.4 mg/dL (2.5-4.9)
[2024-11-21] MEDS: PANTOPRAZOLE 40 MG TABLET.DR PO SCH (07:30)
[2024-11-21 07:33] LABS: PLATELET COUNT (AUTO) 332 K/uL (150-450); RED BLOOD CELL COUNT(AUTO) 3.41 MIL/uL (4.0-5.2); RED CELL DISTRIBUTION WIDTH 15.5 % (11.5-15.0); WHITE BLOOD COUNT (AUTO) 6.5 K/uL (4.3-11.0)
[2024-11-21 07:39] LABS: LACTIC ACID 1.4 mmol/L (0.4-2.0)
[2024-11-21 07:59] LABS: LYMPHOCYTES % (MANUAL) 17 % (16-48); MONOCYTES % (MANUAL) 9 % (0-11.0); NEUTROPHILS % (MANUAL) 72 (42-76); PLATELET ESTIMATE ADEQUATE
[2024-11-21 08:14] LABS: MYELOCYTES % 2 % (0-0)
[2024-11-21] MEDS: MAGNESIUM OXIDE 400 MG TABLET PO ONE ×2 (08:30→12:39)
[2024-11-21] MEDS: POTASSIUM CHLORIDE 20 MEQ TAB.PRT.SR PO ONE (08:30)
[2024-11-21 08:33] LABS: LDL 92.0 mg/dL (0-99)
[2024-11-21] MEDS: CEFTRIAXONE 1 G in IV D5W 50 ML IV SCH (09:00)
[2024-11-21] MEDS: ENOXAPARIN SODIUM 40 MG/0.4 ML DISP.SYRIN SQ SCH (09:56)
[2024-11-21 11:30] VITALS: BP 143/61; TEMP 97.7; O2SAT 95
[2024-11-21 20:00] VITALS: BP 153/114; TEMP 99; O2SAT 92
[2024-11-22] VITALS: BP 160/70; TEMP 98.6; O2SAT 91
[2024-11-22] MEDS: OLANZAPINE 10 MG VIAL IM ONE (01:09)
[2024-11-22 07:55] LABS: PLATELET COUNT (AUTO) 352 K/uL (150-450); RED BLOOD CELL COUNT(AUTO) 3.24 MIL/uL (4.0-5.2); RED CELL DISTRIBUTION WIDTH 15.4 % (11.5-15.0); WHITE BLOOD COUNT (AUTO) 6.2 K/uL (4.3-11.0)
[2024-11-22 08:00] VITALS: BP 129/89; TEMP 98.2; O2SAT 95
[2024-11-22 08:26] LABS: CALCIUM, SERUM 8.0 mg/dL (8.5-10.1); CREATININE 0.6 mg/dL (0.6-1.3); PHOSPHORUS 2.5 mg/dL (2.5-4.9); SODIUM SERUM 138.0 mmol/L (136-145); UREA NITROGEN, BLOOD 12.0 mg/dL (7-18)
[2024-11-22] MEDS: POTASSIUM CHLORIDE 20 MEQ TAB.PRT.SR PO SCH (09:33)
[2024-11-22] MEDS: MAGNESIUM OXIDE 400 MG TABLET PO ONE (09:34)
[2024-11-22 10:39] VITALS: BP 129/89; TEMP 98.2; O2SAT 95
[2024-11-22 12:42] LABS: NEUTROPHILS % (MANUAL) 57 (42-76)
[2024-11-22 12:43] LABS: EOSINOPHILS % (MANUAL) 2 % (0-4); LYMPHOCYTES % (MANUAL) 28 % (16-48); MONOCYTES % (MANUAL) 13 % (0-11.0); PLATELET ESTIMATE ADEQUATE
[2024-11-22] MEDS: LORAZEPAM 0.5 MG TABLET PO PRN (15:54)
[2024-11-22 16:00] VITALS: BP 126/72; TEMP 98.4; O2SAT 94
[2024-11-22 20:00] VITALS: BP 125/57; TEMP 98.8; O2SAT 96
[2024-11-22] MEDS: TEMAZEPAM 7.5 MG CAPSULE PO PRN (23:03)
[2024-11-23] MEDS: ACETAMINOPHEN 325 MG TABLET PO PRN (06:52)
[2024-11-23] MEDS: LORAZEPAM INJ 2 MG/ML VIAL IM ONE ×2 (09:03→17:09)
[2024-11-23 16:00] VITALS: BP 119/89; TEMP 97.5; O2SAT 96
[2024-11-23] MEDS: HALOPERIDOL LACTATE INJ 5 MG/ML VIAL IM ONE (17:46)
[2024-11-23 20:00] VITALS: BP 148/81; TEMP 98.1; O2SAT 94
[2024-11-24 08:00] VITALS: BP 157/86; TEMP 98.6; O2SAT 100
[2024-11-24 11:30] VITALS: BP 151/79; TEMP 98.4; O2SAT 95
[2024-11-24 16:00] VITALS: BP 165/84; TEMP 98.3; O2SAT 95
[2024-11-24 20:47] VITALS: BP 109/89; TEMP 97.5; O2SAT 93
[2024-11-25 08:00] VITALS: BP 103/65; TEMP 98.4; O2SAT 98
[2024-11-25] MEDS ORDERED: LORAZEPAM 0.5 MG TABLET PO PRN (11:00)
== END 2024-11-25 17:50 | DRG 640 ==
LOC: ER 20:41 → TELE 11-21 01:18 → MED 11-22 01:00
PROVIDERS: ADMIT Nurse Practitioner Acute Care; ATTEND Nurse Practitioner Acute Care
DX: E87.20 Acidosis, unspecified (principal); I21.A1 Myocardial infarction type 2; F03.93 Unspecified dementia, unspecified severity, with mood disturbance; F03.92 Unspecified dementia, unspecified severity, with psychotic disturbance; N39.0 Urinary tract infection, site not specified; F03.911 Unspecified dementia, unspecified severity, with agitation; F31.9 Bipolar disorder, unspecified; E03.9 Hypothyroidism, unspecified; J32.0 Chronic maxillary sinusitis; F25.9 Schizoaffective disorder, unspecified; I10 Essential (primary) hypertension; J44.9 Chronic obstructive pulmonary disease, unspecified; M19.90 Unspecified osteoarthritis, unspecified site; Z88.0 Allergy status to penicillin; Z79.899 Other long term (current) drug therapy; E78.5 Hyperlipidemia, unspecified; E83.42 Hypomagnesemia; E87.6 Hypokalemia; F29 Unspecified psychosis not due to a substance or known physiological condition
CPT/HCPCS: 36415; 70450-TC; 71045-TC; 80048-TC; 80061-TC; 80076-TC; 81001; 82140-TC; 82962-TC; 83605-TC; 83735-TC; 84100-TC; 84443-TC; 84484-TC; 85025-TC; 85027-TC; 85730-TC; 87040-TC; 92526; 92611; 93307-TC; A4223; G0378; G0480; J0696; J1200; J1630; J1644; J1650; J2060; J3490; J7030; J7040; J7060

== ENCOUNTER 2024-11-25 19:01 | Inpatient (IN) | payer MEDICARE, OTHER ==
[~2024-11-25] VITALS: Ht 154.9 cm; Wt 70.3 kg
[~2024-11-25 19:01] MED LIST changes: -AMLO5TAB4 PO; -ATOR20TA PO; -BENZ1TAB7 PO; +BUSP5TAB3 PO; -CLON0.5T PO; -CLON1PAT TD; -DIVA500T2 PO; +DONE5TAB34 PO; +DOXE3TAB4 PO; +LORA-259 PO; +MIRT7.5T10 PO; -QUET25TA PO; +QUET50TA PO
[2024-11-25] MEDS ORDERED: MAGNESIUM HYDROXIDE 30 ML UDC PO PRN (19:30)
[2024-11-25] MEDS ORDERED: MAG HYDROX/AL HYDROX/SIMETH 30 ML UDC PO PRN (19:30)
[2024-11-25] MEDS: BLOOD SUGAR DIAGNOSTIC 1 EACH STRIP IN ONE (19:45)
[2024-11-25 20:08] VITALS: BP 162/81; TEMP 97.8; O2SAT 93
[2024-11-25] MEDS: LORAZEPAM 1 MG TABLET PO PRN (20:29)
[2024-11-25 22:00] VITALS: BP 148/78; TEMP 98.1; O2SAT 96
[2024-11-25] MEDS: ACETAMINOPHEN 325 MG TABLET PO PRN (23:25)
[2024-11-26] MEDS: TEMAZEPAM 7.5 MG CAPSULE PO PRN (02:03)
[2024-11-26 08:00] VITALS: BP 150/91; TEMP 97.7; O2SAT 94
[2024-11-26] MEDS: BENZTROPINE MESYLATE (1 MG) 1 MG TABLET PO SCH (11:34)
[2024-11-26] MEDS: LORAZEPAM 0.5 MG TABLET PO PRN (15:36)
[2024-11-26 16:00] VITALS: BP 128/75; TEMP 97.8; O2SAT 97
[2024-11-26 20:00] VITALS: BP 122/49; TEMP 98.9; O2SAT 97
[2024-11-26 20:18] VITALS: BP 122/49; TEMP 98.5; O2SAT 96
[2024-11-26] MEDS: DONEPEZIL 5 MG TABLET PO SCH (21:24)
[2024-11-27 07:02] LABS: PLATELET COUNT (AUTO) 384 K/uL (150-450); RED BLOOD CELL COUNT(AUTO) 3.40 MIL/uL (4.0-5.2); RED CELL DISTRIBUTION WIDTH 15.5 % (11.5-15.0); WHITE BLOOD COUNT (AUTO) 3.5 K/uL (4.3-11.0)
[2024-11-27 07:27] LABS: SODIUM SERUM 141.0 mmol/L (136-145)
[2024-11-27 07:27] LABS: LDL 94 mg/dL (0-99)
[2024-11-27 07:48] LABS: CALCIUM, SERUM 8.0 mg/dL (8.5-10.1); CREATININE 0.9 mg/dL (0.6-1.3); PHOSPHORUS 4.1 mg/dL (2.5-4.9); UREA NITROGEN, BLOOD 10.0 mg/dL (7-18)
[2024-11-27 08:00] VITALS: BP 100/80; TEMP 98.1; O2SAT 98
[2024-11-27 14:09] LABS: ASPARTATE AMINOTRANSFERASE 22.0 U/L (15-37); TOTAL PROTEIN, SERUM 5.3 g/dL (6.4-8.2)
[2024-11-27 16:00] VITALS: BP 128/71; TEMP 97.9; O2SAT 95
[2024-11-27 20:00] VITALS: BP 128/64; TEMP 97.3; O2SAT 98
[2024-11-28 08:00] VITALS: BP 108/55; TEMP 98.1; O2SAT 96
[2024-11-28] MEDS ORDERED: LORAZEPAM INJ 2 MG/ML VIAL IM ONE (09:00)
[2024-11-28] MEDS ORDERED: HALOPERIDOL LACTATE INJ 5 MG/ML VIAL IM ONE (09:00)
[2024-11-28] MEDS: LORAZEPAM INJ 2 MG/ML VIAL IM ONE (09:06)
[2024-11-28] MEDS: HALOPERIDOL LACTATE INJ 5 MG/ML VIAL IM ONE (09:06)
[2024-11-28] MEDS: MINERAL OIL/PETROLATUM,WHITE 120 GM JAR TP PRN (09:52)
[2024-11-28 16:00] VITALS: BP 130/62; TEMP 97.2; O2SAT 95
[2024-11-28] MEDS: TEMAZEPAM 7.5 MG CAPSULE PO PRN (21:07)
[2024-11-29 05:05] VITALS: BP 143/77; TEMP 98.2; O2SAT 97
[2024-11-29 08:00] VITALS: BP 134/99; TEMP 97.4; O2SAT 95
[2024-11-29 15:58] VITALS: BP 119/94; TEMP 97.8; O2SAT 97
[2024-11-29 20:27] VITALS: BP 145/98; TEMP 97.8; O2SAT 96
[2024-11-29] MEDS ORDERED: DIVALPROEX SODIUM 500 MG TABLET.DR PO SCH (21:00)
[2024-11-29] MEDS: DIVALPROEX SODIUM 125 MG CAP.SPRINK PO SCH (21:36)
[2024-11-30 08:06] VITALS: BP 110/64; TEMP 97.7; O2SAT 97
[2024-11-30 15:59] VITALS: BP 98/77; TEMP 97.8; O2SAT 97
[2024-12-01] MEDS ORDERED: Z GUARD REMEDY 4 OZ OINT TP PRN (02:00)
[2024-12-01 08:00] VITALS: BP 138/58; TEMP 98.4; O2SAT 98
[2024-12-02 16:00] VITALS: BP 126/83; TEMP 97.8; O2SAT 98
[2024-12-02 19:49] VITALS: BP 105/72; TEMP 98.1; O2SAT 98
[2024-12-03 08:00] VITALS: BP 153/74; TEMP 97.6; O2SAT 94
[2024-12-03] MEDS: HALOPERIDOL LACTATE INJ 5 MG/ML VIAL IM ONE (13:35)
[2024-12-03] MEDS: LORAZEPAM INJ 2 MG/ML VIAL IM STA (13:35)
[2024-12-03 16:02] LABS: PLATELET COUNT (AUTO) 321 K/uL (150-450); RED BLOOD CELL COUNT(AUTO) 3.84 MIL/uL (4.0-5.2); RED CELL DISTRIBUTION WIDTH 16.8 % (11.5-15.0); WHITE BLOOD COUNT (AUTO) 4.9 K/uL (4.3-11.0)
[2024-12-03 18:30] LABS: APPEARANCE,URINE CLEAR (CLEAR); BLOOD, URINE NEGATIVE Ery/uL (NEGATIVE); LEUKOCYTE ESTERASE ,URINE NEGATIVE (NEGATIVE); NITRITE, URINE NEGATIVE (NEGATIVE); UGLUCOSE NEGATIVE (NEGATIVE)
[2024-12-04 08:00] VITALS: BP 119/73; TEMP 97.8; O2SAT 98
[2024-12-04] MEDS: DIVALPROEX SODIUM 125 MG CAP.SPRINK PO SCH (08:25)
[2024-12-04 16:00] VITALS: BP 167/90; TEMP 98.1; O2SAT 95
[2024-12-04 19:46] VITALS: BP 106/79; TEMP 98.1; O2SAT 96
[2024-12-05 16:00] VITALS: BP 161/88; TEMP 97.9; O2SAT 96
[2024-12-05 16:15] VITALS: BP 155/80
[2024-12-05 19:52] VITALS: BP 170/88; TEMP 99; O2SAT 99
[2024-12-05 20:00] VITALS: BP 170/88; TEMP 99; O2SAT 99
[2024-12-05] MEDS: QUETIAPINE FUMARATE 25 MG TABLET PO SCH (21:11)
[2024-12-06 08:00] VITALS: BP 139/85; TEMP 97.8; O2SAT 94
[2024-12-06] MEDS: QUETIAPINE FUMARATE 25 MG TABLET PO SCH (21:20)
[2024-12-07] MEDS: QUETIAPINE FUMARATE 25 MG TABLET PO SCH (08:04)
[2024-12-07] MEDS: LORAZEPAM INJ 2 MG/ML VIAL IM STA (11:46)
[2024-12-07] MEDS: HALOPERIDOL LACTATE INJ 5 MG/ML VIAL IM STA (11:46)
[2024-12-07 16:09] VITALS: BP 149/59; TEMP 97.8; O2SAT 97
[2024-12-08 20:45] VITALS: BP 150/109; TEMP 98.2; O2SAT 96
[2024-12-09 08:17] VITALS: BP 138/78; TEMP 98.6; O2SAT 97
[2024-12-09] MEDS: QUETIAPINE FUMARATE 25 MG TABLET PO SCH (09:00)
[2024-12-09] MEDS ORDERED: DONE5TAB34 PO (11:02)
== END 2024-12-09 11:45 | DRG 885 ==
LOC: GPS 19:01
PROVIDERS: ADMIT Registered Nurse; ATTEND Nurse Practitioner Acute Care
DX: F29 Unspecified psychosis not due to a substance or known physiological condition (principal); E43 Unspecified severe protein-calorie malnutrition; F03.92 Unspecified dementia, unspecified severity, with psychotic disturbance; F03.93 Unspecified dementia, unspecified severity, with mood disturbance; E78.5 Hyperlipidemia, unspecified; E03.9 Hypothyroidism, unspecified; I10 Essential (primary) hypertension; Z79.899 Other long term (current) drug therapy; Z73.6 Limitation of activities due to disability; F31.9 Bipolar disorder, unspecified; E88.09 Other disorders of plasma-protein metabolism, not elsewhere classified; E66.9 Obesity, unspecified; Z68.29 Body mass index [BMI] 29.0-29.9, adult; K62.3 Rectal prolapse; L85.3 Xerosis cutis; L84 Corns and callosities
CPT/HCPCS: 36415; 80048-TC; 80061-TC; 80076-TC; 80164-TC; 82140-TC; 83735-TC; 84100-TC; 84443-TC; 85025-TC; 97110-TC; 97112-TC; 97116-TC; 97530-TC; J1200; J1630; J2060